=== PATIENT | male | born 1950 | race Caucasian/White ===

== ENCOUNTER 2018-02-09 10:14 | Day surgery (SDC) | payer MEDICARE, SELFPAY ==
[2018-02-09 10:44] VITALS: BP 123/71; PULSE 62; RESP 14; TEMP 36.5; O2SAT 100; BMI 26.3
--- NOTE | 2018-02-09 12:15 | HERN_PTH ---
PATIENT: CHRISTIAN HALL LOC: [facility] [place] U#:[id number] AGE/SX: 67/M ROOM: RE02/09/[address]: Dr. Darien Easton MD : [id number] BED: DIS: 02/09/2018 SPEC #: [id number] RECD: 02/09/18 15:36 STATUS: ANIRUDH LEYLA #: [id number] MARIE: 02/09/18 12:[address]: Darien Easton DEPT: SURGICAL PATHOLOGY RECD BY: Kobe Solorio ENTERED: 02/10/18 08:15 SP TYPE: Hernia OTHR DR: Dr. Audie Nichols MD Tissues: HERNIA Procedures: Surgery Specimen Level II HEADER OPERATION: Umbilical hernia repair PRE-OP DIAGNOSIS: Umbilical hernia, incarcerated TISSUE SUBMITTED: Umbilical hernia sac MICROSCOPIC DIAGNOSIS Umbilical hernia sac: Mesothelial-lined fibroadipose and fibroconnective tissue, consistent with hernia sac with focal fat necrosis and chronic inflammation. SJ:yumi 02/11/18 MICROSCOPIC DESCRIPTION Slides are reviewed. GROSS DESCRIPTION Received in fixative is one container labeled with the patient's name and designated umbilical hernia sac. The specimen consists of an irregular piece of yellow to congested adipose tissue measuring 2.5 x 2.5 x 1 cm. No mass lesion is identified. [employer] Head sections are submitted in one cassette. / CONRAD:yumi 02/10/18 TC:5 [facility]: [id number]
[2018-02-09] MEDS: Cefazolin 2 GM in 0.9% Normal Saline 100 ML IV (12:20)
[2018-02-09] MEDS: Bupivacaine Mpf 0.5% 30 ML VIAL (12:45)
--- NOTE | 2018-02-09 12:50 | PCM.DC.HER ---
Discharge Diet: Light diet - advance as tolerated Discharge Activity: Return to Normal Activity, May Not Drive - for 2-3 days or while taking narcotic pain meds., May Shower - with the bandage in place 1-2 days after surgery. Lifting Restrictions: 20 pounds for 2 weeks. Additional Activity Instructions:: Climbing stairs is fine, walking is encouraged. Sitting in bed may be uncomfortable. Sitting up using your lateral muscles (sitting up sideways) is usually more comfortable. Do not drive, work heavy equipment of sign legal documents for 24 hours. Pain medications may also cause constipation. If you have difficulty with this, discuss with your doctor. Call your doctor if your incision/area has: Continuous Slow Oozing, Sudden Increased Bleeding, Increased Pain/ Swelling, Increased Redness, Foul Smelling Discharge Call your doctor if you observe: Fever of 101 or Higher Suture Line Care: Avoid Pulling/Pushing, Avoid Pinching/Bending Change Dressing in (Days):: 2 - Leave steri-strips for 1 week. May protect with a guaze bandaid. Cleanse incision/area with: Keep Dressing Clean & Dry Allergies/Adverse Reactions: Allergies No Known Allergies Allergy (Verified 02/08/18 10:26) Medications to take at Discharge NK [NK] 02/02/18 Primary Care Physician: Audie Nichols [Primary Care Provider] - Please Follow Up With: Darien Easton MD When: Please call to schedule 2 week follow up appointment. [phone]
--- NOTE | 2018-02-09 12:51 | PCM.OPRPT ---
Problem List (1) Umbilical hernia Status: Acute Qualifiers: Obstruction and gangrene presence: without obstruction or gangrene Qualified Code(s): K42.9 - Umbilical hernia without obstruction or gangrene Report of Operation Date of Procedure: 02/09/18 Pre-Operative Diagnosis: Umbilical hernia Post-Operative Diagnosis: Umbilical hernia Surgery/Procedure Performed:: Umbilical hernia repair Specimen's removed: Hernia sac Description of Procedure: Patient was brought back to the operating room and MAC anesthesia was administered. The abdomen was prepped and draped in usual sterile fashion. Next a curvilinear incision was marked above the umbilicus and anesthetized with Marcaine. Incision was then made over this marking and deepened to the level of the hernia sac. Hernia sac was dissected free from the umbilicus with blunt dissection assisted with electrocautery. Once the hernia sac was isolated it was opened as it was not reducible. The hernia sac itself was dissected free from the fascia and sent for pathology. The omental fat that was protruding through the hernia was reduced back into the abdomen. The hernia itself measured 1 cm and so was closed with sutures and set of mesh. 2 [id number] 0 PDS sutures were used to close the defect horizontally. Next a 3-0 Vicryl suture was used to tack the umbilical stalk down to the fascia. Next the wound was irrigated and suctioned dry. Hemostasis was good. The incision was then closed with interrupted 3-0 Vicryl sutures under the skin and then Steri-Strips and a bandage were applied. The patient tolerated the procedure well. The patient was taken to PACU in stable condition.
[2018-02-09 12:55] VITALS: BP 105/65; BP 123/71; PULSE 76; RESP 16; TEMP 36.6; O2SAT 99
[2018-02-09 13:00] VITALS: BP 116/73; BP 123/71; PULSE 69; RESP 16; O2SAT 99
[2018-02-09 13:05] VITALS: BP 112/78; BP 123/71; PULSE 70; RESP 16; O2SAT 100
[2018-02-09 13:10] VITALS: BP 123/71; BP 130/76; PULSE 70; RESP 16; TEMP 36.5; O2SAT 100
[2018-02-09 14:00] VITALS: BP 123/71
== END 2018-02-09 14:15 | disposition home or self-care (01) ==
LOC: SDC 10:17 → AC 10:17
PROVIDERS: Family Provider Internal Medicine; PCP Internal Medicine; Visit Provider Surgery
PROC: (CPT 49587; principal; 2018-02-09 12:00)
DX: K42.9 Umbilical hernia without obstruction or gangrene (principal); K58.9 Irritable bowel syndrome, unspecified
CPT/HCPCS: 49587; 88302; 93005; J7120

== ENCOUNTER 2019-12-19 15:28 | Inpatient (IN) | payer MEDICARE, SELFPAY ==
[2019-12-19 15:38] VITALS: PULSE 100; RESP 16; O2SAT 94; BMI 19.4
[2019-12-19 15:49] VITALS: BP 132/70; PULSE 100; RESP 18; TEMP 36.8; O2SAT 94
[2019-12-19] MEDS: Acyclovir 200 MG Capsule 400 MG PO (18:16)
[2019-12-19] MEDS: Linezolid 600 MG Tablet PO (18:17)
[2019-12-19] MEDS: Sotalol Hydrochloride 80 MG Tablet 40 MG PO (18:17)
--- NOTE | 2019-12-19 19:25 | HP.PCM_ITS ---
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 The patient is a 69 year old Male without significant past medical history with followin10/21/2019 Admitted to Outside Hospital. 10/26/2019 CT abdomen/pelvis showed splenomegaly, probable ankylosing spondylitis. 10/2019 influenza B, pancytopenia, mostly agranulocytosis. 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 Hospital course complicated by VRE, Jeff parapsilosis rectal wound infection. Anal condyloma acuminata. Strep and Klebsiella bacteremia. Atrial fibrillation with rapid ventricular response treated with Sotalol. 11/29/2019 Chest X-ray showed patchy focal opacities right midlung. 11/30/2019 Infectious Disease recommended Tamiflu for influenza A. Stop Zosyn. Levaquin 500MG daily for antibacterial prophylaxis. 12/01/2019 Admit to [facility] for 2nd opinion. Condyloma treated with Valacyclovir. EBV IgM positive. 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 Blood transfusion as necessary. Acyclovir 400MG twice daily for prophylaxis. Zosyn IV broad spectrum antibiotic. 12/08/2019 Flexible sigmoidoscopy for chronic anal fissure. 12/08/2019 Admit to MICU after failure of extubation. 12/09/2019 Extubated. Antibiotics per ID for PICC line infection. Doppler ultrasound showed left lower extremity calf DVT. Atrial fibrillation treated with Sotalol 40MG BID, CHADSVASC2 score 1, no anticoagulation. ID low suspicion for COVID-19. Tamsulosin 0.4MG daily for urinary retention. Micafungin switched to fluconazole 400MG daily thru 12/18/2019 for jeff. Daptomycin from 12/05/2019 thru 12/18/2019 for VRE. Zosyn 12/02/2019 empiric for febrile neutropenia. Tamiflu 12/01/2019 thru 12/11/2019 for influenza A. Oral nystatin 5ML QID thrush prophylaxis. Compression stockings for DVT prophylaxis. Both pharmacologic & non-pharmacologic DVT prophylaxis contraindicated due to thrombocytopenia. 12/19/2019 Admit to TCU with debility, here for rehabilitation, strengthening, prior to disposition determination. Past Medical History Medical History: Medical History (Last Updated 02/02/18 @ 14:45 by Linda Low) No pertinent past medical history Allergies No Known Allergies Allergy (Verified 02/08/18 10:26) Home Medications: Ambulatory Orders Medication Instructions Recorded Acyclovir [Zovirax] 1 tab PO BID 12/19/19 Albuterol Sulfate 2.5 mg IH Q6H PRN PRN 12/19/19 Fluconazole [Diflucan] 200 mg PO DAILY 12/19/19 Guaifenesin [Mucinex] 600 mg PO Q12H PRN PRN 12/19/19 Levofloxacin 750 mg PO DAILY 12/19/19 Linezolid [Zyvox] 1 tab PO BID 12/19/19 Melatonin/Pyridoxine HCl (B6) 1 ea PO QHS 12/19/19 [Melatonin 3 mg Tablet] Pantoprazole Sodium [Protonix] 40 mg PO BID 12/19/19 Psyllium Husk/Aspartame [Metamucil 1 pkt PO DAILY 12/19/19 Fiber Singles Packet] Sennosides/Docusate Sodium 8.6 - 50 tab PO QHS 12/19/19 [Senna-S Tablet] Sotalol 80mg 40 mg PO BID 12/19/19 Tamsulosin HCl [Flomax] 0.4 mg PO DAILY 12/19/19 levoFLOXacin tablet [Levaquin 500 mg PO DAILY 12/19/19 tablet] Surgical History: Surgical History (Last Updated 02/02/18 @ 14:45 by Linda Low) S/P left inguinal hernia repair Z98.890, Z87.19 S/P right inguinal hernia repair Z98.890, Z87.19 Surgical History: no surgical history Psychiatric History: No pertinent psych hx Lives: Spouse/ Significant Other Smoking Status: Never smoker Tobacco Use: Non-smoker Alcohol: None Drugs: None - *Family History Maternal Family History: Family History (Last Updated 02/02/18 @ 14:48 by Linda Low) Father Diabetes Heart disease Brother Diabetes Mother Diabetes Heart disease Sister Asthma History Items: No pertinent history Paternal Family History: Family History (Last Updated 02/02/18 @ 14:48 by Linda Low) Father Diabetes Heart disease Brother Diabetes Mother Diabetes Heart disease Sister Asthma History Items: No pertinent history Review of Systems Constitutional: Denies: Chills, Fever, Weight Change HEENT: Denies: Head Aches, Sinus Congestion, Sinus Drainage Cardiovascular: Denies: Chest Pain, Palpitations Respiratory: Denies: Cough, Shortness of breath at rest, Sputum production Gastrointestinal: Denies: Abdominal Pain, Nausea, Vomiting Genitourinary: Denies: Dysuria Musculoskeletal: Denies: Joint Pain, Joint Tenderness Skin: Denies: Rash, Wounds Neurological: Denies: Numbness, Tingling, Focal weakness Psychiatric: Denies: Anxiety, Depression, Homicidal Ideations, Suicidal Ideations Hematologic/ Lymphatic: Denies: Easy Bruising, Easy Bleeding VTE Information - Inpt Only VTE Present on Admission: Yes VTE Mechan Device Prophylaxis: Knee High ZAFAR Hose VTE Pharm Prophylaxis ordered?: No Reason prophylaxis not ordered:: Medical Contraindication Patient Problems: Active and Suspected Problems (Last Updated 02/02/18 @ 14:45 by Linda Low) Debility (Acute) Influenza B (Acute) Influenza (Acute) Pancytopenia (Acute) Large granular lymphocytic leukemia (Acute) Rectal ulcer (Acute) Condyloma acuminata (Acute) Bacteremia (Acute) Atrial fibrillation with rapid ventricular response (Acute) DVT (deep venous thrombosis) (Acute) Urinary retention (Acute) - Physical Exam Vitals/I&O's: Vital Signs Temp Pulse Resp BP Pulse Ox 98.3 F 100 18 132/70 H 94 12/19/19 15:49 12/19/19 15:49 12/19/19 15:49 12/19/19 15:49 12/19/19 15:49 Oxygen Flow Rate (L/min) 2 Oxygen Delivery Method Nasal Cannula Weight: 46.72 kg Body Mass Index (BMI) 19.4 General: Alert, Oriented x3, Cooperative HEENT: Atraumatic, PERRLA, EOMI, Normocephalic Neck: Supple, No JVD, Negative Carotid Bruits Lungs: Clear to auscultation, Normal air movement Cardiovascular: Regular rate, No murmurs Abdomen: Bowel Sounds Present, Soft, Non Tender Extremities: No edema, Capillary Refill Less than 3 Seconds Skin: No rashes, No breakdown Musculoskeletal: No Tenderness to Palpation of Joints or Extremities Neurological: Cranial nerves II-XII grossly intact Psych/Mental Status: Normal Affect, Appropriate Current Medications Acyclovir (Zovirax) 400 mg PO BID [facility] Last Admin: 12/19/19 18:16 Dose: 400 mg Documented by: Albuterol Sulfate (Ventolin Aerosols) 2.5 mg INHALATION Q6H PRN PRN PRN Reason: breathing Fluconazole (Diflucan) 200 mg PO DAILY [facility] Stop: 12/28/19 06:01 Guaifenesin (Mucinex) 600 mg PO Q12H PRN PRN PRN Reason: COUGH Levofloxacin (Levaquin Tablet) 750 mg PO DAILY [facility] Stop: 12/28/19 06:01 Levofloxacin (Levaquin Tablet) 500 mg PO DAILY [facility] Linezolid (Zyvox) 600 mg PO BID [facility] Stop: 12/28/19 18:01 Last Admin: 12/19/19 18:17 Dose: 600 mg Documented by: Melatonin (Melatonin) 3 mg PO QHS [facility] Nutritional Formula (Lactose Free) (Ensure Enlive) 120 ml PO 4X/DAY [facility] Pantoprazole Sodium (Protonix) 40 mg PO BID@0600,1600 [facility] Psyllium Hydrophilic Mucilloid (Metamucil) 1 packet PO DAILY [facility] Senna/Docusate Sodium (Senokot-S, Edilma-Colace) 1 tablet PO QHS [facility] Sotalol HCl (Betapace (G)) 40 mg PO BID [facility] Last Admin: 12/19/19 18:17 Dose: 40 mg Documented by: Tamsulosin HCl (Flomax) 0.4 mg PO DAILY@0830 [facility] Tuberculin PPD (Tubersol, Aplisol, Ppd) 5 tu ID X1 ONE Stop: 12/20/19 10:01 Tuberculin PPD (Tubersol, Aplisol, Ppd) 5 tu ID X1 ONE Stop: 12/27/19 10:01 Assessment/Plan All Active Problems (Last Updated 02/02/18 @ 14:45 by Linda Low) Debility (Acute) Influenza B (Acute) Influenza (Acute) Pancytopenia (Acute) Large granular lymphocytic leukemia (Acute) Rectal ulcer (Acute) Condyloma acuminata (Acute) Bacteremia (Acute) Atrial fibrillation with rapid ventricular response (Acute) DVT (deep venous thrombosis) (Acute) Urinary retention (Acute) Umbilical hernia (Acute) 69 year old male with below past medical history hospitalized for large granular lymphocytic leukemia, complicated by influenza A/B, VRE/Jeff bacteremia, atrial fibrillation with rapid ventricular response, urinary retention, encephalopathy, admitted to TCU with debility, here for rehabilitation, strengthening, prior to disposition determination. * Debility - PT/OT. * Pain - Tylenol 1000MG Q6H PRN pain (1-10) * Bowel - Metamucil 1 packet daily, Senna/colace 1 tablet QHS. * Adult immunization - Administer Prevnar 13, Pneumovax 23, Fluzone as appropriate. * DVT prophylaxis - Contraindicated due to thrombocytopenia. * Antiviral prophylaxis - Acyclovir 400MG BID. * Shortness of breath - Albuterol 2.5MG Q6H PRN. * Nutrition - Ensure Enlive 120ML 4x/day. * Candidemia - Fluconazole 200MG daily thru 12/28/2019. * Cough - Robitussin 10ML Q4H PRN. * Febrile neutropenia - Levaquin 750MG daily thru 12/28/2019, then 500MG daily prophylaxis. * VRE - Linezolid 600MG BID thru 12/28/2019. * Insomnia - Melatonin 3MG QHS. * GERD - Pantoprazole 40MG BID. * Atrial fibrillation - Sotalol 40MG BID, [id number] score 1, no anticoagulation recommended. * Urinary retention - Tamsulosin 0.4MG daily. * Large granular lymphocytic leukemia - Treatment after functional status improves.
[2019-12-19] MEDS: Senna/Docusate Sodium 1 Tablet PO (21:39)
[2019-12-19] MEDS: MELATONIN 3 MG TABLET PO (21:39)
[2019-12-19 22:05] VITALS: BP 130/53; PULSE 114; RESP 24; TEMP 38.3; O2SAT 89
--- NOTE | 2019-12-19 22:15 | NURSING ---
Addendum entered by Alanna Bonilla 12/19/19 23:58: 22:52 hours called in and was updated on all new orders. also stated for patient to be a Full Code. Original Note: Patient found with oxygen off. Oxygen saturation at 83%. Oxygen replaced on at 3 LPM. Oxygen increased to 89%. Patient warm to touch. Oral Temperature obtained. 100.9F. RN Notified.
--- NOTE | 2019-12-19 22:20 | NURSING ---
Dr. Osorio notified of patient's vital signs including temperature of 100.9. New orders entered.
--- NOTE | 2019-12-19 22:30 | RAD_ITS ---
HISTORY: fever ADDITIONAL HISTORY: None provided. COMPARISON: None TECHNIQUE: Frontal and lateral chest radiographs. Number of images including paperwork: 2 FINDINGS: LUNGS AND PLEURA: Left lower lobe consolidation with volume loss. Patchy bilateral airspace opacities elsewhere. CARDIAC SILHOUETTE: Unremarkable. MEDIASTINUM AND HASEEB: Unremarkable. UPPER ABDOMEN: Unremarkable. SKELETON AND SOFT TISSUES: No acute findings. OTHER DEVICES AND HARDWARE: None. RAD/Chest PA and Lateral IMPRESSION: Bilateral infiltrates with left lower lobe consolidation concerning for pneumonia. at 2249 Reported and signed by: Delia Avalos MD Electronically Signed: Delia Avalos MD at 22:49 EDT Tel , Service support ,
[2019-12-19 22:38] LABS: Absolute Lymphocyte Count 0.69 X10^3/uL (0.83-4.51); Hematocrit 26.5 % (40-54); Hemoglobin 8.1 g/dL (13.0-16.5); Lymphocyte # 0.69 X10^3/ul (4.0); Mean Corp Hgb Conc 30.6 g/dL (32-36); Mean Corpuscular Hgb 27.9 pg (27.0-32.0); Mean Corpuscular Volume 91.4 fL (80-94); Mean Platelet Vol. 9.5 fl (6.2-12.0); Monocyte# 0.06 X10^3/uL; NRBC Flagged by Analyzer 0 % (0-5); POSITIVE COUNT YES; POSITIVE DIFFERENTIAL YES; POSITIVE MORPHOLOGY YES; Platelet Count 95 K/mm3 (150-450); RBC Distribution Width CV 16.5 % (11.6-14.6); RBC Distribution Width SD 55.2 fl (35.1-43.9)
[2019-12-19 22:42] LABS: Differential Indicated SCAN CRITERIA MET; White Blood Count 0.8 K/mm3 (4.4-11.0)
--- NOTE | 2019-12-19 23:00 | NURSING ---
Dr. Osorio notified of WBC 0.8, Hbg of 8.1, Patient tested for positive for Influenza A, patient's chest xray showing bilateral infiltrates with left lower lobe consolidation concerning for pneumonia. Dr. Osorio with new orders for IV Zosyn 3.373 q6h x 7 days, and to hold po levaquin until end of zosyn.
[2019-12-19] MEDS: 0.9% Normal Saline 1,000 ML 999 ML IV (23:11)
[2019-12-19 23:19] LABS: Differential Comment SCANNED; Platelet Estimate MOD DEC (ADEQ)
[2019-12-19 23:28] LABS: Bacteria 0 SEEN /hpf (None Seen); Mucous, Urine 0 SEEN /hpf (<or=2+); Squamous Epithelial Cells - UA 0 SEEN /hpf (0-5)
[2019-12-19 23:35] LABS: Color, Urine Yellow (Yellow); Glucose, Dipstick 50 mg/dl (Normal); Ketone-Dipstick Negative (Negative); Leukocyte Esterase-Dipstick Negative /ul (Negative); Nitrite-Dipstick Negative (Negative); Occult Blood-Urine 150 /ul (Negative); Protein-Dipstick 100 mg/dl (Negative); Urine Bilirubin Dipstick Negative (Negative); Urine Clarity Clear (Clear); Urine Urobilinogen Normal (Normal)
[2019-12-19 23:52] LABS: Anion Gap 5 (5-15); BUN 13 mg/dL (7-18); BUN/Creat Ratio 10.7 RATIO (10-20); Calcium,Total 7.8 mg/dL (8.5-10.1); Chloride 108 mmol/L (98-107); Creatinine, Serum 1.22 mg/dL (0.70-1.30); EST Glomerular Filtration Rate 62 mL/min (>60); Est Glom Filt Rate - Afr Amer 75 mL/min (>60); Glucose 159 mg/dL (74-106); Potassium 3.4 mmol/L (3.5-5.1); Sodium Level 146 mmol/L (136-145)
[2019-12-20 00:04] LABS: Red Blood Cells-Urine 10-25 SEEN /hpf (0-5); White Blood Cells 0-5 SEEN /hpf (0-5)
[2019-12-20] MEDS: Acetaminophen 500 MG Tablet 1000 MG PO (00:41)
[2019-12-20 00:55] VITALS: BP 132/68; PULSE 102; RESP 16; TEMP 38.1; O2SAT 93
[2019-12-20 02:17] VITALS: BP 89/36; PULSE 39; RESP 14; TEMP 35.8; O2SAT 93
--- NOTE | 2019-12-20 02:17 | NURSING ---
Addendum entered by Delia Rasheed 12/20/19 04:17: At 0247 Dr. Osorio was called and notified of patient's change of status. Orders given to send patient down to ER for evaluation. At 0248 report called and given to BRITTANY Issa down in the ER. Original Note: Walked into patients room and found oxygen off of patient. Oxygen saturations in the 70's. Nasal Cannula placed back on patient. Oxygen increased. Patient hard to arouse with voice and pain. Vitals obtained. Blood pressure reading hypotensive. Repeated vitals. Patient cold and clammy. Notified RN on Unit. Stayed with patient while RN called Dr. Osorio. Blood glucose taken. Within normal limits. At 02:54 patient transported via cot to ER room #7. Bedside report given to Maegan SOTO. Gloria, next of kin, notified at 03:22 hours.
[2019-12-20 02:20] VITALS: BP 79/38; PULSE 105; RESP 14; O2SAT 92
[2019-12-20 02:23] VITALS: BP 82/38; PULSE 54; RESP 16; O2SAT 92
[2019-12-20 02:36] VITALS: BP 76/30; PULSE 70; RESP 16; O2SAT 95
[2019-12-20 02:46] LABS: Bedside Glucose 169 mg/dL (70-110)
[2019-12-20 06:11] LABS: Absolute Lymphocyte Count 1.01 X10^3/uL (0.83-4.51); Hematocrit 28.1 % (40-54); Hemoglobin 8.4 g/dL (13.0-16.5); Lymphocyte # 1.01 X10^3/ul (4.0); Lymphocyte % 92.7 % (19-41); Mean Corp Hgb Conc 29.9 g/dL (32-36); Mean Corpuscular Hgb 27.6 pg (27.0-32.0); Mean Corpuscular Volume 92.4 fL (80-94); Mean Platelet Vol. 11.4 fl (6.2-12.0); Monocyte# 0.07 X10^3/uL; Monocyte% 6.4 % (0-10); NRBC Flagged by Analyzer 0 % (0-5); Neutrophil # 0.01 X10^3/uL (2.7-7.7); Neutrophil % 0.9 % (47-70); POSITIVE COUNT YES; POSITIVE DIFFERENTIAL YES; POSITIVE MORPHOLOGY YES; Platelet Count 76 K/mm3 (150-450); RBC Distribution Width CV 16.5 % (11.6-14.6); RBC Distribution Width SD 55.3 fl (35.1-43.9); Red Blood Count 3.04 M/mm3 (4.6-6.2)
[2019-12-20 06:16] LABS: Differential Indicated SCAN CRITERIA MET; White Blood Count 1.1 K/mm3 (4.4-11.0)
[2019-12-20 06:21] LABS: Anion Gap 8 (5-15); BUN 15 mg/dL (7-18); BUN/Creat Ratio 11.2 RATIO (10-20); Calcium,Total 7.6 mg/dL (8.5-10.1); Chloride 107 mmol/L (98-107); Creatinine, Serum 1.34 mg/dL (0.70-1.30); EST Glomerular Filtration Rate 56 mL/min (>60); Est Glom Filt Rate - Afr Amer 68 mL/min (>60); Estimated Creatinine Clearance 33.41 ml/min; Glucose 170 mg/dL (74-106); Potassium 3.2 mmol/L (3.5-5.1); Sodium Level 147 mmol/L (136-145)
[2019-12-20 06:36] LABS: Anisocytosis 1+; Differential Comment SCANNED; Hypochromasia RARE; Macrocytosis RARE; Ovalocyte RARE; Platelet Estimate MOD DEC (ADEQ); Polychromasia RARE; Reactive Lymphocyte RARE; Stomatocyte RARE
--- NOTE | 2019-12-20 08:21 | DCINST_ITS ---
You will use the following diet at home:: No restrictions, Regular Your food should be the consistency of: Regular Your liquids should be the consistency of: Regular/Thin Discharge Activity: Use Walker Weight Bearing Status: Weight bearing as tolerated Call your doctor if you observe: Fever of 101 or Higher, Inability to urinate, Inability to have a bowel movement, Shortness of breath, Chest pain, Uncontrolled pain Allergies/Adverse Reactions: Allergies No Known Allergies Allergy (Verified 12/20/19 03:22) Medications to take at Discharge Acyclovir [Zovirax] 1 tab PO BID 12/19/19 Albuterol Sulfate 2.5 mg IH Q6H PRN PRN 12/19/19 Fluconazole [Diflucan] 200 mg PO DAILY 12/19/19 Guaifenesin [Mucinex] 600 mg PO Q12H PRN PRN 12/19/19 Levofloxacin 750 mg PO DAILY 12/19/19 Linezolid [Zyvox] 1 tab PO BID 12/19/19 Melatonin/Pyridoxine HCl (B6) [Melatonin 3 mg Tablet] 1 ea PO QHS 12/19/19 Pantoprazole Sodium [Protonix] 40 mg PO BID 12/19/19 Psyllium Husk/Aspartame [Metamucil Fiber Singles Packet] 1 pkt PO DAILY 12/19/19 Sennosides/Docusate Sodium [Senna-S Tablet] 8.6 - 50 tab PO QHS 12/19/19 Sotalol 80mg 40 mg PO BID 12/19/19 Tamsulosin HCl [Flomax] 0.4 mg PO DAILY 12/19/19 levoFLOXacin tablet [Levaquin tablet] 500 mg PO DAILY 12/19/19 Primary Care Physician: Audie Nichols [Primary Care Provider] - Please follow up with your Primary Care Physician in: 1 week. Test Results: Test results from this visit will be discussed in further detail at your follow- up appointment, if applicable. Please Follow Up With: Lab visit with Lab Main [facility] 1 Please Follow Up With: Bebe Motta MD Please Follow Up With: Marisabel Lyons CNP Proposed Discharge Date: 12/20/19
--- NOTE | 2019-12-20 08:25 | PCM.DC.SUM ---
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 12/19/2019 Fever 100.4, WBC 0.8, influenza B positive, Chest X-ray c/w bilateral pneumonia, tachycardic, hypotensive. Discharge to [facility] Emergency Department for evaluation, on review of ED note, resident opted for hospice consult. - Physical Exam Vitals/I&O's: Vital Signs Temp Pulse Resp BP Pulse Ox 96.4 F L 70 16 76/30 L 95 12/20/19 02:17 12/20/19 02:36 12/20/19 02:36 12/20/19 02:36 12/20/19 02:36 Oxygen Flow Rate (L/min) 2 Oxygen Delivery Method Nasal Cannula Weight: 46.72 kg Body Mass Index (BMI) 19.4 Intake and Output for Last 24 Hours 12/18/19 12/19/19 12/20/19 23:59 23:59 23:59 Output Total 150 / 150 Balance -150 / -150 Microbiology Past 72 Hours 12/19/19 22:20 Mucosa - Nasopharyngeal Influenza Types A,B Direct FA (LINDA) - Final Influenzae A 12/19/19 22:20 Mucosa - Nasopharyngeal Respiratory Panel (PCR) - Final Influenza A (Subtype H1) 12/19/19 22:20 Mucosa - Nasopharyngeal Rapid RSV (DFA) - Final Laboratory Results 12/19/19 22:26: WBC 0.8 L*, RBC 2.90 L, Hgb 8.1 L, Hct 26.5 L, MCV 91.4, MCH 27.9, MCHC 30.6 L, RDW Std Deviation 55.2 H, RDW Coeff of Danyel 16.5 H, Plt Count 95 L, MPV 9.5, Immature Gran % (Auto) 0.000, Neut % (Auto) 0.0 L, Lymph % (Auto) 92.0 H, [place] % (Auto) 8.0, Eos % (Auto) 0.0, Baso % (Auto) 0.0, Absolute Neuts (auto) 0.0 L, Absolute Lymphs (auto) 0.69 L, Nucleated RBC % 0, Differential Comment SCANNED, Diff Path Review January, Platelet Estimate MOD DEC 12/19/19 22:26: Sodium 146 H, Potassium 3.4 L, Chloride 108 H, Carbon Dioxide 33.0 H, Anion Gap 5, BUN 13, Creatinine 1.22, Estim Creat Clear Calc 36.70, Est GFR (MDRD) Af Amer 75, Est GFR (MDRD) Non-Af 62, BUN/Creatinine Ratio 10.7, Glucose 159 H, Calcium 7.8 L 12/19/19 23:15: Urine Color Yellow, Urine Clarity Clear, Urine pH 7.0, Ur Specific [place] 1.010, Urine Protein 100 H, Urine Glucose (UA) 50 H, Urine Ketones Negative, Urine Occult Blood 150 H, Urine Nitrite Negative, Urine Bilirubin Negative, Urine Urobilinogen Normal, Ur Leukocyte Esterase Negative, Urine RBC 10-25 SEEN, Urine WBC 0-5 SEEN, Ur Squamous Epith Cells 0 SEEN, Urine Bacteria 0 SEEN, Urine Mucus 0 SEEN 12/20/19 02:40: POC Glucose 169 H 12/20/19 03:30: WBC 1.1 L*, RBC 3.04 L, Hgb 8.4 L, Hct 28.1 L, MCV 92.4, MCH 27.6, MCHC 29.9 L, RDW Std Deviation 55.3 H, RDW Coeff of Danyel 16.5 H, Plt Count 76 L, MPV 11.4, Immature Gran % (Auto) 0.000, Neut % (Auto) 0.9 L, Lymph % (Auto) 92.7 H, [place] % (Auto) 6.4, Eos % (Auto) 0.0, Baso % (Auto) 0.0, Absolute Neuts (auto) 0.0 L, Absolute Lymphs (auto) 1.01, Nucleated RBC % 0, Differential Comment SCANNED, Diff Path Review January foll, Reactive Lymphocytes RARE, Platelet Estimate MOD AUG, Polychromasia RARE, Hypochromasia RARE, Anisocytosis 1+, Macrocytosis RARE, Ovalocytes RARE, Stomatocytes RARE 12/20/19 03:30: Sodium 147 H, Potassium 3.2 L, Chloride 107, Carbon Dioxide 32.0, Anion Gap 8, BUN 15, Creatinine 1.34 H, Estim Creat Clear Calc 33.41, Est GFR (MDRD) Af Amer 68, Est GFR (MDRD) Non-Af 56 L, BUN/Creatinine Ratio 11.2, Glucose 170 H, Calcium 7.6 L Discharge Diet: No Restrictions Discharge Activity: Use Walker Weight Bearing Status: Weight bearing as tolerated Call your doctor if you observe: Fever of 101 or Higher, Inability to urinate, Inability to have a bowel movement, Shortness of breath, Chest pain, Uncontrolled pain Home Medications: Medications to take at Discharge Acyclovir [Zovirax] 1 tab PO BID 12/19/19 Albuterol Sulfate 2.5 mg IH Q6H PRN PRN 12/19/19 Fluconazole [Diflucan] 200 mg PO DAILY 12/19/19 Guaifenesin [Mucinex] 600 mg PO Q12H PRN PRN 12/19/19 Levofloxacin 750 mg PO DAILY 12/19/19 Linezolid [Zyvox] 1 tab PO BID 12/19/19 Melatonin/Pyridoxine HCl (B6) [Melatonin 3 mg Tablet] 1 ea PO QHS 12/19/19 Pantoprazole Sodium [Protonix] 40 mg PO BID 12/19/19 Psyllium Husk/Aspartame [Metamucil Fiber Singles Packet] 1 pkt PO DAILY 12/19/19 Sennosides/Docusate Sodium [Senna-S Tablet] 8.6 - 50 tab PO QHS 12/19/19 Sotalol 80mg 40 mg PO BID 12/19/19 Tamsulosin HCl [Flomax] 0.4 mg PO DAILY 12/19/19 levoFLOXacin tablet [Levaquin tablet] 500 mg PO DAILY 12/19/19 Primary Care Physician: Audie Nichols [Primary Care Provider] - Please follow up with your Primary Care Physician in: 1 week. Please Follow Up With: Lab visit with Lab [facility] 1 Please Follow Up With: Bebe Motta MD Please Follow Up With: Marisabel Lyons CNP Disposition: Home with Hospice Minutes spent on discharge:: 30 Patient Condition:: Poor Medical Necessity - Tobacco Use Smoking Status: Never smoker Tobacco Use: Non-smoker Meaningful Use Info Meaningful Use Diagnoses (Choose all that apply): None applicable
[2019-12-20 12:12] LABS: Pathologist Review Reviewed
[2019-12-20 12:13] LABS: Pathologist Review Reviewed
--- NOTE | 2019-12-20 14:08 | CASEMGMT ---
Social Work Reviewed and agreed with social work qa intern documentation on this date. 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
--- NOTE | 2019-12-25 07:30 | MDS.RN ---
Information for the mds was obtained from review of the clinical record, interview of staff.
== END 2019-12-20 04:28 | disposition short-term general hospital (02) | DRG 193 ==
LOC: TCU 12-20 08:59
PROVIDERS: Admitting Provider Family Medicine Geriatric Medicine; PCP Internal Medicine; Visit Provider Family Medicine Geriatric Medicine
DX: J10.1 Influenza due to other identified influenza virus with other respiratory manifestations (principal); E88.3 Tumor lysis syndrome; C91.Z0 Other lymphoid leukemia not having achieved remission; D61.818 Other pancytopenia; Z16.21 Resistance to vancomycin; I82.4Z2 Acute embolism and thrombosis of unspecified deep veins of left distal lower extremity; B37.89 Other sites of candidiasis; R50.81 Fever presenting with conditions classified elsewhere; K21.9 Gastro-esophageal reflux disease without esophagitis; A63.0 Anogenital (venereal) warts; I48.91 Unspecified atrial fibrillation; R33.9 Retention of urine, unspecified; T80.219D Unspecified infection due to central venous catheter, subsequent encounter; Y84.8 Other medical procedures as the cause of abnormal reaction of the patient, or of later complication, without mention of misadventure at the time of the procedure; B96.1 Klebsiella pneumoniae [K. pneumoniae] as the cause of diseases classified elsewhere; B95.2 Enterococcus as the cause of diseases classified elsewhere
CPT/HCPCS: 36415; 71046; 80048; 81001; 82962; 85025; 87040; 87086; 87633; 87804; 87807; J7030

== ENCOUNTER 2019-12-20 03:13 | Emergency (ER) | payer MEDICARE, SELFPAY ==
[2019-12-19 15:38] VITALS: BMI 19.4
[2019-12-20] VITALS (8 sets, daily range): BP systolic 75–98; BP diastolic 46–69; PULSE 59–156; RESP 9–28; TEMP 36.4–36.6; O2SAT 98–100; BMI 18.7
--- NOTE | 2019-12-20 03:21 | EKG12_ITS ---
Test Reason : SOB Blood Pressure : / mmHG Vent. Rate : 159 BPM Atrial Rate : 044 BPM P-R Int : 000 ms QRS Dur : 084 ms QT Int : 292 ms P-R-T Axes : 000 001 086 degrees QTc Int : 474 ms Atrial fibrillation with rapid ventricular response Nonspecific ST and T wave abnormality Abnormal ECG Confirmed by SHYANN MAZA, KIMBERLEE ([id number]), publishing editor LETICIA SIDDIQUI ([id number]) on 12/26/2019 2:01:15 PM Referred By: MARCIN Confirmed By:CARMEL BOOTHE MD
[2019-12-20] MEDS: 0.9% Normal Saline 1,000 ML 999 ML IV ×2 (03:38→04:38)
[2019-12-20 03:48] LABS: International Normalized Ratio 1.5; Prothrombin Time (Protime)PT. 17.6 SECONDS (11.7-14.9)
[2019-12-20 03:49] LABS: Partial Thromboplast Time 50.3 Seconds (24.1-36.2)
[2019-12-20 03:55] LABS: Magnesium 1.7 mg/dL (1.6-2.6); Phosphorus 2.3 mg/dL (2.5-4.9)
[2019-12-20 03:59] LABS: Lactic Acid 1.8 mmol/L (0.4-1.9)
--- NOTE | 2019-12-20 04:48 | ED.VISSUMM ---
- ER Visit Summary Date of Service: 12/20/19 Chief Complaint: Mental status change History of Present Illness: The patient is a 69 M who was transferred to the TCU from [facility] yesterday evening. He had been admitted to the hospital on October 21 and then had a complicated stay. He was diagnosed with large granular lymphocytic leukemia. He had influenza B in October as well as A. fib RVR. In November he had pneumonia, influenza A, was positive for Wilder-Lester virus, had tumor lysis syndrome. December 07 he had a sigmoidoscopy and failed extubation following this was admitted to the MICU. He had a PICC line infection following this. Upon arrival to the hospital the patient had an H&P performed and blood work was sent. The evening of arrival the patient became confused, hypotensive, tachycardic. Physical Examination: Vitals: 97.5, 75/60, 159, 28, 90% on 3 L nasal cannula General: Well-nourished and well-developed. Chronically ill appearing. Head: Normocephalic atraumatic. Neck: Supple, no lymphadenopathy. No JVD. Nontender. Cardiovascular: Tachycardic irregular rhythm with a 2 out of 6 stock murmur. Respiratory: Agonal respirations with poor air movement Abdominal: Soft, nontender, nondistended, normal bowel sounds. No guarding, rebound, or peritoneal signs. Back: Nontender. Extremities: Nontender, 2+ edema lower extremities bilaterally. Skin: Normal color, no rash. Neurologic: Alert and oriented ?1. Does not answer questions. Psych: Normal affect. Test Results: EKG is A. fib at [address] changes. Initial troponin 0 0.03. UA shows blood and 10-25 red blood cells. INR is 1.5 with a PTT of 56.3. Chem-7 shows a sodium 146, potassium 3.4, chloride 108, CO2 33, glucose 159, calcium 7.8. CBC shows a white count of 0.8 with an H&H of 8.1 and 26.5, platelets of 95, lymphocytes of 92. He has 0 segmented neutrophils. His absolute neutrophil count is 0. Phosphorus is 2.3. Lactic acid is 1.8. He is positive for influenza A. Chest x-ray shows bilateral infiltrates with a left lower lobe consolidation. Emergency Department Course and Treatment: On TCU the patient had received Zosyn IV. He was given vancomycin IV here. He was given a 30 cc/kg bolus of normal saline. He was given Tylenol p.o. He is having runs of nonsustained V. tach. He was given 150 mg of amiodarone IV. We attempted synchronized cardioversion at 200 J without success. Treatment Plan: Upon arrival to the emergency department I did discuss the patient with his who states that he wanted to have everything done. She lives in [place] and is coming up. When she arrived in the emerge department we had a prolonged discussion and she again discussed this with the patient. He is not capable of making this decision at this time. However, she knows that he has been ill for greater than 2 months and that he has a horrible prognosis. She would like to make him DNR comfort care only and have a hospice consult. Disposition: [] Impression: 1. Atrial fibrillation with RVR. 2. Pneumonia, healthcare acquired. 3. Influenza A. 4. Leukemia. 5. Neutropenia with absolute neutrophil count of 0. 6. Nonsustained ventricular tachycardia. 7. Septic shock. 8. Hospice consult. 9. Critical care time 45 minutes. This note was generated with [employer] dictation software. It may contain incorrect words, spelling, and punctuation that were not noted in review of the chart prior to signing ED Disposition - Plan for ED Patient: Referrals: Audie Nichols [Primary Care Provider] -
--- NOTE | 2019-12-20 06:20 | ED.RN ---
Family has made the decision to place PT into hopsice care. at bedside in precautions. Pending hospice nurse to ED. PT comfortable, offered beverage etc, refused. Monitor turned off.
--- NOTE | 2019-12-20 06:43 | ED.RN ---
Report given to TCU. TWO bags of belongings will be dropped off outside of his room from TCU.
== END 2019-12-20 11:22 ==
PROVIDERS: Emergency Medicine; Emergency Provider Emergency Medicine; PCP Internal Medicine
DX: I48.91 Unspecified atrial fibrillation (principal); J10.00 Influenza due to other identified influenza virus with unspecified type of pneumonia; Y95 Nosocomial condition; C91.Z0 Other lymphoid leukemia not having achieved remission; D70.9 Neutropenia, unspecified; I47.2 Ventricular tachycardia; R65.21 Severe sepsis with septic shock; I49.3 Ventricular premature depolarization; Z66 Do not resuscitate; Z86.718 Personal history of other venous thrombosis and embolism; Z79.899 Other long term (current) drug therapy
CPT/HCPCS: 51702; 83605; 83735; 84100; 84484; 85610; 85730; 93005; 96360; 96361; 96365; 96366; 96375; 99285; J7030; J7050; A4216